=== PATIENT | female | born 1965 | race American Indian/Alaskan Native ===

== ENCOUNTER 2022-03-19 15:36 | Emergency (ER) | payer SELFPAY ==
[2022-03-19 15:48] VITALS: BP 132/78
--- NOTE | 2022-03-19 16:34 | XRay Report ---
CHEST 2 VIEWS INDICATION / CLINICAL INFORMATION: Chest Pain. COMPARISON: None available. FINDINGS: SUPPORT DEVICES: None. HEART / MEDIASTINUM: No significant abnormality. LUNGS / PLEURA: No significant pulmonary or pleural abnormality. No pneumothorax. ADDITIONAL FINDINGS: Scoliosis in the spine with associated chronic-appearing chest wall deformity. IMPRESSION: 1. No acute findings. Signer Name: Marlon Mcneal MD Signed: 03/19/2022 4:29 PM Workstation Name: [employer]
[2022-03-19 16:47] LABS: Basophils % (Auto) 0.7 % (0.0-1.8); Eosinophils # (Auto) 0.1 K/mm3 (0.0-0.4); Hematocrit 37.8 % (30.3-42.9); Lymphocytes # (Auto) 1.9 K/mm3 (1.2-5.4); Mean Corpuscular HGB Conc 34 % (30-34); Mean Corpuscular Volume 89 fl (79-97); Monocytes # (Auto) 0.4 K/mm3 (0.0-0.8); Monocytes % (Auto) 6.1 % (0.0-7.3); Platelet Count 326 K/mm3 (140-440); Red Blood Count 4.27 M/mm3 (3.65-5.03); Red Cell Distribution Width 13.4 % (13.2-15.2)
[2022-03-19 16:55] LABS: Alanine Aminotransferase 14 units/L (7-56); Albumin 4.8 g/dL (3.9-5); BUN/Creatinine Ratio 21; Blood Urea Nitrogen 17 mg/dL (7-17); Calcium 9.4 mg/dL (8.4-10.2); Hemolysis Index 16
--- NOTE | 2022-03-20 10:13 | Electrocardiograph Report ---
[facility] Test Date: 2022-03-19 Test Time: 15:51:08 Pat Name: KASSI MARTIN Department: Room: Gender: F Director Hospice Operations: IVETH : 1965 Requested By: VICTORINO WILSON Order Number: [id number] Reading MD: Quintin Paul Measurements Intervals [place] Rate: 96 P: 56 [place]: 167 QRS: 71 QRSD: 89 T: 24 QT: 343 QTc: 433 Interpretive Statements Sinus rhythm Probable left atrial enlargement No previous ECG available for comparison Electronically Signed On 03-20-2022 10:12:51 EDT by Quintin Paul
== END 2022-03-19 20:47 | disposition left against medical advice (07) ==
LOC: ED 15:36
DX: R07.89 Other chest pain (principal); Z53.21 Procedure and treatment not carried out due to patient leaving prior to being seen by health care provider
CPT/HCPCS: 36415; 71046; 80053; 84484; 85025; 85730; 93005